=== PATIENT | female | born 1980 | race Caucasian/White ===

== ENCOUNTER 2020-03-23 15:15 | Emergency (ER) | payer MEDICARE, SELFPAY ==
[2020-03-23 15:19] VITALS: BP 138/94; PULSE 89; RESP 16; TEMP 36.3; O2SAT 99; BMI 18.6
--- NOTE | 2020-03-23 16:22 | CT_ITS ---
WS: [id number] CT head wo con* 44485 REASON FOR EXAM: head injury, confusion IV CONTRAST ADMINISTERED: Noncontrast. TOTAL EXAM DLP: 726.[address] scans at [facility] use at least one of these dose optimization techniques: automat ed exposure control; mA and/or kV adjustment per patient size (includes targeted exams where dose is matched to clinical indication); or iterative reconstruction. FINDINGS: The bony calvarium is intact. There is no midline shift or other significant mass effect. No findings of intracranial hemorrhage. No focal brain parenchymal abnormality. Somewhat prominent fourth ventricle and cisterna magna, seen on previous examinations 00160, unchange d. CT/CT head wo con* 99168 IMPRESSION: No acute intracranial abnormality.
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
[2020-03-23 18:24] LABS: Basophils # 0.1 10^3/uL (0.0-0.1); Basophils % 0.5 %; Eosinophils % 0.1 %; Hematocrit 45.3 % (37.0-47.0); Hemoglobin 14.8 g/dL (11.5-15.3); Lymphocytes # 1.5 10^3/uL (0.8-4.8); Lymphocytes % 8.6 %; Mean Corpuscular HGB Conc 32.7 g/dL (30.0-36.0); Mean Corpuscular Hemoglobin 31.4 pg (28.0-34.0); Mean Corpuscular Volume 96.2 fL (81-99); Mean Platelet Volume 10.4 fL (7.4-10.4); Monocytes # 0.6 10^3/uL (0.2-0.9); Monocytes % 3.3 %; Neutrophils # 15.09 10^3/uL (1.8-7.7); Neutrophils % 87.1 %; Nucleated Red Blood Cells % 0 %; Platelet Count 296 10^3/cmm (130-400); Red Blood Count 4.71 10^6/uL (4.1-5.3); Red Cell Distribution Width 12.2 % (12.1-15.1); White Blood Count 17.3 10^3/uL (4.0-10.0)
[2020-03-23 18:39] LABS: Alanine Aminotransferase 20 U/L (0-33); Albumin Level 4.6 g/dL (3.5-5.2); Alkaline Phosphatase 74 IU/L (35-105); Anion Gap 14.9 (5-19); Aspartate Amino Transferase 25 U/L (0-32); Blood Urea Nitrogen 8 mg/dL (6-20); Calcium 9.2 mg/dL (8.5-10.5); Carbon Dioxide 25 mmol/L (22-29); Chloride 104 mmol/L (98-107); Globulin 2.8 g/dL (1.3-4.6); Glomerular Filtration Rate 138.8 mL/min (90-130); Glucose 101 mg/dL (65-115); Osmolality Calculated 288 mOsm/kg (285-295); Potassium 3.9 mmol/L (3.5-5.1); Sodium 140 mmol/L (136-145); Total Bilirubin 0.5 mg/dL (0.15-1.2); Total Protein 7.4 g/dL (6.6-8.7)
[2020-03-23 18:40] LABS: Amphetamines Screen Urine Negative (Negative); Barbiturates Screen Urine Negative (Negative); Benzodiazepines Screen Urine Negative (Negative); Cocaine Screen Urine Negative (Negative); Opiate Screen Urine Negative (Negative); PCP Screen Urine Negative (Negative); THC Screen Urine Positive (Negative)
[2020-03-23 18:42] LABS: Urine Appearance Hazy (CLEAR); Urine Color Yellow (Yellow)
[2020-03-23 18:43] LABS: Add Urine Microscopic? YES; Bilirubin Urine Neg (Negative); Blood Urine 2+ (Negative); Glucose Urine UA Norm (Normal); Ketones Urine 2+ (Negative); Leukocyte Esterase Urine Negative (Negative); Nitrate Urine Negative (Negative); Protein Urine Neg (Negative); Urobilinogen Urine Norm (Negative); pH Urine 5 (5-7)
[2020-03-23 18:49] LABS: Add Urine Culture? No; Bacteria Urine TRACE /hpf; RBC Urine 0-4 /hpf (0-2)
[2020-03-23 19:03] VITALS: BP 115/88; PULSE 82; RESP 18; O2SAT 99
[2020-03-23 19:45] VITALS: BP 115/88; PULSE 82; RESP 18; O2SAT 99
== END 2020-03-23 19:46 | disposition home or self-care (01) ==
PROVIDERS: Nurse Practitioner Family; Emergency Provider Physician Assistant; PCP Family Medicine
DX: R41.82 Altered mental status, unspecified (principal); Z87.820 Personal history of traumatic brain injury; D72.829 Elevated white blood cell count, unspecified; F15.11 Other stimulant abuse, in remission
CPT/HCPCS: 12345; 70450; 80053; 80306; 81001; 85025; 99283

== ENCOUNTER → 2020-04-12 14:42 | Outpatient (BNVA) | payer MEDICARE, SELFPAY | PROVIDERS: PCP Family Medicine; Visit Provider Podiatrist Foot & Ankle Surgery | DX: M79.672 Pain in left foot (principal); M79.671 Pain in right foot | CPT/HCPCS: 73630 ==

== ENCOUNTER → 2021-11-08 13:03 | Outpatient (BNVA) | payer MEDICARE, SELFPAY | PROVIDERS: PCP Family Medicine; Visit Provider Registered Nurse Neonatal Intensive Care | DX: M25.521 Pain in right elbow (principal) | CPT/HCPCS: 73080 ==

== ENCOUNTER → 2024-08-21 13:29 | Outpatient (BNVA) | payer MEDICARE, SELFPAY | PROVIDERS: Family Provider Family Medicine; PCP Family Medicine; Visit Provider Family Medicine | DX: Z87.898 Personal history of other specified conditions (principal); R19.01 Right upper quadrant abdominal swelling, mass and lump; R53.83 Other fatigue | CPT/HCPCS: 80053; 84443; 85025; 86803; 87806 ==

== ENCOUNTER 2024-08-25 10:38 | Outpatient (CLI) | payer MEDICARE, SELFPAY ==
--- NOTE | 2024-08-25 11:00 | MR_ITS ---
WS: [id number] MRI/MRCP OF THE ABDOMEN WITHOUT GADOLINIUM ENHANCEMENT TECHNIQUE: Coronal T2 Fase BH, Axial T2 Fase BH, Axial T2 FS BH, Zxial 3D Chapman BH, Axial DWI BH, 2D MRCP Radial BH, 3D MRCP (Resp), and Axial 3D Dyn BH Post sequences. CLINICAL INFORMATION: RUQ soft tissue abd wall mass ? lipoma COMPARISON: None. FINDINGS: 2 mm RIGHT renal cyst. No hydronephrosis in either kidney. Tiny cortical cyst lower pole RIGHT kidney. Pancreas appears normal. Normal visualized common bile duct. Normal caliber abdominal aorta. Liver is normal in appearance. Mild hepatomegaly measuring 17 cm [id number]. No abnormal gadolinium enhancement. No visualized RIGHT upper quadrant mass or lesion. Small fat-containing umbilical hernia. MR/MR abdomen wo/w con* [id number] Impression: 1. No visualized RIGHT upper quadrant mass. 2. Mild hepatomegaly. 3. RIGHT renal cysts as described above. 4. Fat-containing umbilical hernia.
[2024-08-25] MEDS: gadobenate dimeglumine 20 mL vial 12 ML IV (11:20)
== END 2024-08-25 10:39 | disposition home or self-care (01) ==
PROVIDERS: PCP Family Medicine; Visit Provider Family Medicine
DX: R19.01 Right upper quadrant abdominal swelling, mass and lump (principal); R16.0 Hepatomegaly, not elsewhere classified; N28.1 Cyst of kidney, acquired; K42.9 Umbilical hernia without obstruction or gangrene
CPT/HCPCS: 74183; A9577